=== PATIENT | female | born 1980 | race Caucasian/White ===

== ENCOUNTER 2016-08-28 05:34 | Day surgery (SDC) | payer MEDICAID ==
[~2016-08-28] VITALS: Ht 152.4 cm; Wt 60.3 kg
[~2016-08-28 05:34] MED LIST: ACET-2708 PO; ALBU90AE IH; ASPI-740 PO; AZEL137S7 BOTHNSTRLS; BACL-141 PO; CYAN50008 SL; MELO-58 PO; NITR100C2 PO; NORG7TAB5 PO; PANT40TA4 PO; PROP10TA10 PO; ZOLP10TA6 PO
[2016-08-28 06:26] LABS: PARTIAL THROMBOPLASTIN TIME 24.5 sec (24.0-34.0)
[2016-08-28] MEDS ORDERED: LACTATED RINGERS 1,000 ML IV SCH (06:40)
[2016-08-28 06:47] LABS: HCG SCREEN NEGATIVE
[2016-08-28] MEDS ORDERED: MIDAZOLAM HCL 2 MG/2 ML VIAL ONE (07:42)
[2016-08-28] MEDS ORDERED: FENTANYL CITRATE/PF 50MCG/ML 2ML VIAL ONE (07:42)
[2016-08-28] MEDS ORDERED: PROPOFOL 200MG/20ML VIAL IV ONE (07:50)
[2016-08-28] MEDS ORDERED: LIDOCAINE HCL 1% 20ML VIAL (Pyxis) INJ ONE (07:50)
[2016-08-28] MEDS ORDERED: DEXAMETHASONE 4MG/ML 1ML VIAL ONE (07:50)
[2016-08-28] MEDS ORDERED: LABETALOL HCL 20MG/4ML CARPUJECT IV PRN (08:00)
[2016-08-28] MEDS ORDERED: ONDANSETRON HCL 4MG/2ML VIAL IV PRN (08:00)
[2016-08-28] MEDS ORDERED: MEPERIDINE HCL/PF 25MG/ML CPJ IV PRN (08:00)
[2016-08-28] MEDS ORDERED: GENTAMICIN SULF 40MG/ML 2ML VIAL ONE (08:01)
[2016-08-28] MEDS ORDERED: KETOROLAC 60MG/2ML VIAL IM ONE (08:01)
[2016-08-28] MEDS ORDERED: HYDROMORPHONE HCL/PF 2MG/ML (OR) ONE (08:18)
[2016-08-28] MEDS ORDERED: HYDROCODONE/ACETAMINOPHEN 5/325MG TABLET PO PRN (08:21)
[2016-08-28] MEDS: HYDROMORPHONE HCL/PF 2MG/ML CPJ IV PRN ×2 (08:31→08:37)
[2016-08-28 10:50] VITALS: BP 102/64
== END 2016-08-28 12:30 | disposition home or self-care (01) ==
LOC: OR 05:34
PROVIDERS: ATTEND Urology
DX: N31.8 Other neuromuscular dysfunction of bladder (principal); N35.9 Urethral stricture, unspecified; Z91.040 Latex allergy status; Z88.0 Allergy status to penicillin; Z88.8 Allergy status to other drugs, medicaments and biological substances; Q05.9 Spina bifida, unspecified; Z98.2 Presence of cerebrospinal fluid drainage device
CPT/HCPCS: 36415; 52281; 84703; 85610; 85730; J1100; J1170; J1580; J1885; J2250; J3010; J3490; J7030; J7120; J2704